=== PATIENT | female | born 1945 | race Caucasian/White ===

== ENCOUNTER → 2016-12-16 | Outpatient (CLI) | payer MEDICARE, OTHER ==
[~2016-12-16] MED LIST: ALPH200C3 PO; ASCO500 PO; CETI5TAB2 PO; CITRTAB8 PO; CLAR10TA7 PO; ECHI400C2 PO; GINK40TA2 PO; L-LY500T4 PO; LUTE20TA PO; NETT435C PO; OLIV500C PO; OXYC1SOL5 PO; PROB1TAB PO; QUERTAB PO; TAB-TAB PO; UBIQ100C PO; [UNRECOGNIZED DRUG - CODE] PO; [UNRECOGNIZED DRUG - OTHER] PO
[2016-12-16 10:14] LABS: BLOOD GAS BASE EXCESS 0.1 mmol/L (-2-2); BLOOD GAS CARBOXYHEMOGLOBIN 1.3 % (0-4); BLOOD GAS HCO3 24 mmol/L (22-26); BLOOD GAS METHEMOGLOBIN 1.1 % (0-2); BLOOD GAS O2 HGB SATURATION 96 % (90-100); BLOOD GAS PCO2 35 mmHg (38-42); BLOOD GAS PO2 105 mmHg (61-120); BLOOD GAS TOTAL HGB 11.8 G/DL (12.0-16.0); CRITICAL VALUE NO; DRAW SITE LT BRACHIAL; NUMBER OF ARTERIAL PUNCTURES 1; OXYGEN DEVICE RA; TEMP CORR TO 98.6; ULNAR PULSE Y
[2016-12-16 10:15] LABS: STAT NO
== END ==
LOC: HRSP 08:38
PROVIDERS: ATTEND Allergy & Immunology
DX: R09.02 Hypoxemia (principal)
CPT/HCPCS: 36600; 82805